=== PATIENT | male | born 1930 | race Caucasian/White ===

== ENCOUNTER 2018-12-04 05:41 | Day surgery (SDC) | payer OTHER ==
[~2018-12-04] VITALS: Ht 188 cm; Wt 109.8 kg
[~2018-12-04 05:41] MED LIST: ALBUTEROL NEB IH; ALBUTEROL2.5 MG/31 INH; CETIRIZINE HCL10 MG PO; COREG OR; COREG25 MG PO; COUMADIN 10MG T10 M1 PO; COUMADIN 5 MG TA5 M1 PO; DARVOCET-N 1001 EAC1 PO; FLOMAX0.4 MG PO; HYTRIN10 MG PO; KLOR-CON 1010 MEQ PO; NEXIUM20 M1 PO; NITROGLYCERIN0.4 MG SUBLING; NORCO 10-325 T1 EACH PO; OMEPRAZOLE40 MG PO; PROSCAR 5MG TABL5 M1 PO; SINGULAIR 10 MG10 M1 PO; SPIRONOLACTONE25 M1 PO; TORSEMIDE20 MG PO; VENTOLIN HFA 1818 GM INH; XARELTO20 MG PO; ZOCOR 20 MG TAB20 M1 PO; ZOCOR20 MG PO
[2018-12-04 10:00] VITALS: BP 148/96
--- NOTE | 2018-12-06 11:06 | PATH ---
[facility] [place] [address] PATHOLOGY RPT PROCEDURE Name: SHAUNA CHENG Room #: DEP [facility].#: [id number] ������������������ Admission: 12/04/18 ������������������ Date of : 32 Discharge: 12/04/18 Report #: [id number] Path Case #: [id number] [facility] Accession Number: [id number] . 01 Material submitted: . PART A: canthus - RIGHT MEDIAL CANTHUS CARCINOMA - FS. Modifiers: right, medial PART B: canthus - NEW INFERIOR MARGIN - FS. Modifiers: inferior . 01 Clinical history: . Excision of lesion right eye . 02 Frozen section diagnosis: . FROZEN SECTION DIAGNOSES (Loreto Tai MD) . A. 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 B. New inferior margin: - No evidence of carcinoma. . The frozen section diagnoses were relayed to Dr. Patten during the procedure. . Frozen sections performed at [facility], [address] [place], [place] [address]gopi [place], [place] [address]. . . GROSS DESCRIPTION A.Received fresh and it is labeled "right medial canthus carcinoma", and it consists of a circular excision of pink-perea skin which measures 1 x 1.2 x 0.5 cm. The skin surface contains a slightly raised central nodule which spans 0.6 cm and is focally ulcerated. The specimen orientation has been provided on a piece of cardboard by Dr. Patten. The specimen is inked as follows: superior tip - red, medial half - blue, lateral half - black. The specimen is trisected parallel to the medial/lateral access and all frozen on one Chux. . B.Received fresh and it is labeled "new inferior margin", and it consists of a thin strip of pink-perea skin which measures 1.2 x 0.2 x 0.2 cm. The true new margin of the specimen has been inked by Dr. Patten. The specimen is all frozen on one Chux with the new true margin sectioned first on the cryostat. (SKM:lauryn; 12/04/2018) VIRGIL/ALEKSANDER . 02 Diagnosis: [address] [address] PATHOLOGY RPT PROCEDURE Name: SHAUNA CHENG Room #: DEP [facility]#: [id number] ������������������ Admission: 12/04/18 ������������������ Date of : 32 Discharge: 12/04/18 Report #: [id number] Path Case #: [id number] A. Skin, "right medial canthus carcinoma", excision: - Basal cell carcinoma, present focally at inferior margin. . B. Skin, "new inferior margin", excision: - No evidence of carcinoma. (SKM:isha; 12/05/2018) MBR/12/05/2018 . 02 Electronically signed: . Sushant Tai MD, Pathologist NPI- [id number] . 03 Gross description: . Please see frozen section gross description dictated by the pathologist located under the Frozen Section part of this report. /MBR . 02 Pathologist provided ICD-10: C44.111 . 02 CPT . 272788, 116048, 893912, 383627 Specimen Comment: A courtesy copy of this report has been sent to Specimen Comment: [phone], . Specimen Comment: Report sent to / DR HELLER Performed at: [address] [facility] [facility], [place], [place] [id number] MD Elbert Cuevas MD Phone: [phone] Performed at: [address] [id number] MD Haley Conn MD Phone: [phone] Performed at: [address] [facility] [facility], [place], [place] [id number] MD Elbert Cuevas MD Phone: [phone]
--- NOTE | 2018-12-08 16:20 | O ---
[facility] [place] [address] OPERATIVE REPORT Name: SHAUNA CHENG Room #: DEP [facility]..#: [id number] Admission: 12/04/18 ������������������ Attend Phys: Mo Patten MD Discharge: 12/04/18 ������������������ Date of : 32 Report #: [id number] THIS REPORT FOR: //name// CC: Dr. Adam HELLER Physician staff Andres Patten DATE OF SERVICE: 12/04/2018 PREOPERATIVE DIAGNOSIS: Tumor of right medial canthus, upper lid and lower lid. POSTOPERATIVE DIAGNOSIS: Tumor of right medial canthus, upper lid and lower lid, basal cell carcinoma. PROCEDURE: Excision of tumor of right medial canthus, upper lid and lower lid with musculocutaneous flap repair of defect. SURGEON: Mo Patten MD CLINICAL SUPPORT TECH: None. ANESTHESIA: MAC. COMPLICATIONS: None. INDICATIONS FOR SURGERY: This pleasant 88-year-old gentleman has a nodular ulcerative mass in his right medial canthus that appears to be a basal cell carcinoma. Over a decade ago, I removed a similar lesion to this and achieved frozen section controlled margins that were clear. The current procedure is undertaken in order to remove this either recurrent or new primary lesion with frozen sections and subsequently to repair that defect. Informed consent was obtained to include but not limited to the potential risk for loss of vision, bleeding, infection, failure to improve the problem, and the potential need for further surgery or treatment. DESCRIPTION OF PROCEDURE: The patient was taken to the operating room where 2% Xylocaine with epinephrine mixed with equal parts of 0.75% Marcaine with Wydase was administered transcutaneously to the right medial canthus, right upper lid, the right lower lid, the right glabella and the right side of his forehead. An additional aliquot of anesthetic was administered on the left side of his forehead. The patient was subsequently prepped and draped in the usual sterile fashion. A fine tip skin marking pen was then utilized to outline the lesion including 2 mm of normal appearing tissue. The incision was then made which extended across the dorsum of his nose and on to the left side back up through [address] [address] OPERATIVE REPORT Name: PROSPERSHAUNA Baldo Room #: DEP [facility] M.R.#: [id number] Admission: 12/04/18 ������������������ Attend Phys: Mo Patten MD Discharge: 12/04/18 ������������������ Date of : 31 Report #: [id number] his glabella and then down across his lid. The supratrochlear vasculature was cut, so relatively brisk bleeding ensued as the additional incisions were made. The line was followed very closely however and the lesion was excised en-bloc. As hemostasis was achieved in the field, the pathologist took the marked specimen and snap froze it. He felt that the margins were still positive inferiorly, but they were clear everywhere else. An additional piece of tissue was then made across the whole inferior border of the wound that was approximately 2-3 mm in width. The pathologist snap froze this tissue and found that the margins were now clear. Attention was then turned to repair of the defect. It was decided to use a flap from superiorly to rotate down in an inferolateral position to correct the defect. The flap was then outlined extending superiorly for the wound based on the supratrochlear vasculature from the left side. The musculocutaneous flap was incised and subsequently elevated. Some of the deeper fat from the tissue that was deep to the vasculature was thinned. Hemostasis was re-achieved. The donor site superiorly was closed with interrupted buried 5-0 Vicryl sutures deep and then 6-0 chromic sutures more superficially. This allowed relatively easy rotation of the flap into the new bed, which was secured with interrupted Vicryl suture and then 6-0 plain gut suture more superficially. The wound closed well. The wound was then dressed with erythromycin ophthalmic ointment followed by the patient being transported to the recovery area having tolerated the procedure well with no anesthetic or operative complications being noted. ��������������������������������������������� <ELECTRONICALLY SIGNED> ���������������������������������������� By: Mo Patten MD ��������������������������������������������� 12/08/18 1620 1130 1213 oM Patten MD /nt
== END 2018-12-04 12:21 | disposition home or self-care (01) ==
LOC: TBA 05:41 → OR 05:41
DX: C44.1121 Basal cell carcinoma of skin of right upper eyelid, including canthus (principal); C44.1122 Basal cell carcinoma of skin of right lower eyelid, including canthus; I10 Essential (primary) hypertension; J43.9 Emphysema, unspecified; Z95.0 Presence of cardiac pacemaker; Z95.1 Presence of aortocoronary bypass graft; Z98.890 Other specified postprocedural states; Z87.891 Personal history of nicotine dependence; Z79.899 Other long term (current) drug therapy; Z85.038 Personal history of other malignant neoplasm of large intestine; Z85.840 Personal history of malignant neoplasm of eye; Z98.0 Intestinal bypass and anastomosis status; Z90.49 Acquired absence of other specified parts of digestive tract
CPT/HCPCS: 50010; 50101; 50386; 50398; 51636; 56528; 56531; 62110; 62850; 70005